=== PATIENT | female | born 1985 | race Two or more races ===

== ENCOUNTER 2025-08-16 16:40 | Emergency (ER) | payer OTHER, SELFPAY ==
[2025-08-16 17:23] VITALS: BP 126/83; PULSE 98; RESP 20; TEMP 36.7; O2SAT 96
--- NOTE | 2025-08-16 17:26 | XR_ITS ---
EXAMINATION: Right wrist 2 views TECHNIQUE: AP lateral right wrist 2 views Date and time: August 16, 2025, 1740 hours INDICATIONS: Patient fell today with injury to wrist, wrist pain. FINDINGS: No fracture or dislocation No foreign body IMPRESSION: No fracture or dislocation If wrist pain persists, recommend coned navicular view follow-up
--- NOTE | 2025-08-16 17:26 | XR_ITS ---
EXAMINATION: Right hand 2 views TECHNIQUE: AP lateral right hand 2 views Date and time: August 16, 2025, 1737 hours INDICATIONS: Patient fell today with injury to the hand, hand pain FINDINGS: No acute fracture. No dislocation No foreign body IMPRESSION: No acute fracture
--- NOTE | 2025-08-16 18:54 | EDNOTE_ITS ---
Upper Extremity Injury RME/HPI General Chief Complaint: Hand/Wrist Problems Stated Complaint: RIGHT HAND INJURY Time Seen by Provider: 08/16/25 16:47 Arrival date/time: 08/16/25 16:40 This is a case of 40-year-old female with no medical history came into the emergency room due to right hand and right wrist pain patient 1 hour prior to arrival in the emergency room patient was working accidentally fell and tripped landed on his right hand and right wrist since then patient is having pain and swelling denies any head injury denies any loss of consciousness denies any neck chest or abdominal injury Limitations: no limitations Related Data Home Medications ?Medication ?Instructions ?Recorded ?Confirmed atorvastatin 20 mg tablet 20 mg PO QDAY 11/09/2111/09 metformin 500 mg tablet 500 mg PO BID 11/09/2111/09 [id number] 1 mg 1 tab PO 1XD 12/21/23 12/21/23 tablet Previous Rx's ?Medication ?Instructions ?Recorded ibuprofen 600 mg tablet 600 mg PO Q8H PRN pain #30 t abs 11/10/21 ibuprofen 800 mg tablet 800 mg PO Q8H PRN pain #20 t abs 08/16/25 Allergies Allergy/AdvReac Type Severity Reaction Status Date / Time No Known Drug Allergies Allergy Unknown Verified 08/16/25 16:43 Review of Systems Review of Systems Systems Reviewed: All systems reviewed, normal except as documented Past Medical History Past Medical History NEUROLOGIC: Negative Neurological Disorders or Seizures CARDIAC: Positive Cardiac Disorders and Hypercholesterolemia; Negative Congestive Heart Failure, Edema, Cellulitis or Varicose Veins RESPIRATORY: Negative Chronic Obstructive Pulmonary Disease (COPD) GASTROINTESTINAL: Negative Gastrointestinal Disorders, Hepatitis or Colorectal Cancer GENITOURINARY: Negative Genitourinary Disorders, Renal Disease or Prostate Cancer REPRODUCTIVE: Positive Previous Pregnancies; Negative Breast Cancer, Pelvic Inflammatory Disease or Testicular Cancer MUSCULOSKELETAL: Negative Musculoskeletal Disorders or Bone Cancer ENDOCRINE: Positive Endocrine Disorders and Diabetes Mellitus Type 2; Negative Diabetes Mellitus Type 1, Hypoglycemia, Hyperthyroidism, Hypothyroidism, Parathyroid Disease, Pituitary Disease, Systemic Lupus Erythematosus, Syndrome of Inappropriate Antidiuretic Hormone (SIADH) or Graves' Disease HEMATOLOGIC: Negative Blood Disorders or Anemia PSYCHO/SOCIAL: Positive Depression; Negative Depression or Anxiety OTHER HISTORY: Positive Chicken Pox; Negative Hospitalization, Autoimmune Disease, Shingles, Falls, Blood Transfusions, Blood Transfusion Reaction, Anesthesia Reactions, Organ Transplant, Chemotherapy, Radiation Therapy, Hyperbaric Therapy, MRSA, VRSA, Vancomycin-Resistant Enterococci, Human Immunodeficiency Virus (HIV), Measles, Mumps, Rubella ([place] Measles), Pertussis, Clostridium Difficile, Cancer, Breast Cancer, Cervical Cancer, Colorectal Cancer, Lung Cancer, Ovarian Cancer, Prostate Cancer or Testicular Cancer Family History FAMILY HISTORY: Positive Family Cardiac Disorders, Family Surgery and Family Anesthesia Reaction; Negative Family Psychiatric Problems, Family Respiratory Disorders, Family Gastrointestinal Problems or Family Cancer Surgical History SURGICAL: Positive Section; Negative Pacemaker, Endocrine Surgery, Thyroidectomy or Organ Transplant Social History SMOKING STATUS: Never smoker SECOND HAND EXPOSURE: No ED Exam General Limitations: Present no limitations General appearance: Present alert, in no apparent distress and other (Physical examination patient is awake alert oriented not in distress nontoxic looking well-hydrated well-nourished) Head Head exam: Present atraumatic, normocephalic and normal inspection Eye Eye exam: Present normal appearance, PERRL and EOMI ENT ENT exam: Present normal exam, normal oropharynx and mucous membranes moist Neck Neck exam: Present normal inspection, full ROM and trachea midline; Absent tenderness, meningismus, lymphadenopathy or thyromegaly Chest Chest inspection: Present normal inspection and symmetric chest wall rise; Absent tenderness Respiratory Respiratory exam: Present normal lung sounds bilaterally; Absent respiratory distress, wheezes, stridor, accessory muscle use or prolonged expiratory phase Cardiovascular Cardiovascular exam: Present regular rate, normal rhythm and normal heart sounds; Absent bradycardia, tachycardia, irregular rhythm, systolic murmur or diastolic murmur Abdominal Exam Abdominal exam: Present soft and normal bowel sounds; Absent distention, tenderness, guarding, rebound, rigidity, diminished bowel sounds, hyperactive bowel sounds, hypoactive bowel sounds or organomegaly Extremities Exam Extremities exam: Present normal inspection and full ROM Expanded Upper Extremity Exam Forearm/Wrist exam: Present tenderness, swelling and other (ROM limited due to pain neurovascular intact); Absent abrasion, laceration, ecchymosis, deformity, crepitus, dislocation, erythema, tenderness over anatomical snuff box or pain with axial thumb loading Hand exam: Present tenderness, swelling and other (No crepitation no deformity no snuffbox tenderness ROM limited due to pain pulses were full and equal cap illary refill less than 2 seconds sensory intact); Absent abrasion, laceration, skin avulsion, ecchymosis, deformity, crepitus, dislocation, erythema, amputation, nail avulsion or subungual hematoma Back Exam Back exam: Present normal inspection and full ROM Neurological Exam Neurological exam: Present alert, oriented X3, CN II-XII intact, normal gait and reflexes normal; Absent motor sensory deficit Psychiatric Psychiatric exam: Present normal affect and normal mood Skin Skin exam: Present warm, dry, intact and normal color Course Quality Measures none Orders Category Date Time Status XR hand RT 2V Stat Exams 08/16/25 17:26 Completed XR wrist RT 2V Stat Exams 08/16/25 17:26 Completed HYDROcodone*/APAP 5/325 [[place] 5/325] Med 08/16/25 18:51 Once 1 tab PO X1 ONE Vital Signs Vital signs: Vital Signs Temperature 98.1 F 08/16/25 17:23 Pulse Rate 98 08/16/25 17:23 Respiratory Rate 20 08/16/25 17:23 Blood Pressure 126/83 08/16/25 17:23 Pulse Oximetry (%) 96 08/16/25 17:23 Oxygen Delivery Method Room Air 08/16/25 17:23 Oxygen saturation is 96% in room Extremity Injury MDM Narrative MDM Narrative:: This is a case of 40-year-old female with no medical history came into the emergency room due to right hand and right wrist pain patient 1 hour prior to arrival in the emergency room patient was working accidentally fell and tripped landed on his right hand and right wrist since then patient is having pain and swelling denies any head injury denies any loss of consciousness denies any neck chest or abdominal injury physical examination patient is awake alert oriented not in distress nontoxic looking well-hydrated well-nourished moderate tenderness on the dorsal aspect of the right hand and right wrist with mild swelling no crepitation no deformity no snuffbox tenderness ROM is limited due to pain pulses were full and equal capillary refill less than 2 seconds sensory is intact x-ray of the right hand right wrist showed no fracture no dislocation splint was applied patient tolerated well neurovascular intact RICE treatment will continue by the patient at home patient was prescribed with ibuprofen patient was given [place] which improved resolve the pain patient will follow-up with PCP in 2 days for reevaluation she was advised if symptoms persist is to see a orthopedic surgeon for possible MRI or repeat x-ray to rule out occult fracture or ligament injury for any worsening symptoms or any emergent concern return precaution in the ER is advised Patient was discharged with comfortable condition walking with stable gait. Patient verbalized no further complains explained diagnosis and answered patient question. Patient is comfortable with the proposed management plan including the need to follow up with his/her primary care physician and any specialist if applicable Discussed patient for any urgent condition or worsening sx, He/She needed to go to emergency room immediately or call 911. Patient acknowledge the responsibility to follow up as instructed and to monitor her/his symptoms. For any persistence of the symptoms for more than 3-5 days return precaution advised. Discussed the result of the test and was given printed discharge instruction Patient data External records reviewed:: [facility] previous records Clinical information provided by:: patient Social determinants that could affect healthcare access:: none Patient has the following chronic illnesses:: None How is presenting disease/condition affected by chronic disease/condition?: no chronic disease Evaluation data The following diagnostics were reviewed and interpreted by me:: radiology exam(s) Lab and/or radiology exams considered but not ordered:: Reviewed Interpretation Summary: Reviewed Medications / Prescriptions Medications or Prescriptions considered but not ordered:: Given Medication administrations:: Medication Administration History Hydrocodone Bitart/Acetaminophen (Hydrocodone/[place] 5/325 Tablet) 1 tab PO X1 ONE Stop: 08/16/25 18:52 Given Consultations Consultation(s) initiated? (list below): No Consultation #1 (Physician, Specialty, Details): None Diagnosis Upper Extremity Injury Differential Diagnosis: sprain and strain of wrist and fracture of hand Most likely diagnosis given after review of the tests above:: Right wrist and right hand sprain Admission Indicated Admission indicated?: not indicated Explain why admission is indicated or not indicated:: Not indicated Admission Request Was there a request for admission?: No Admission Attestation Admission request attestation: Not indicated Disposition Plan Disposition Plan: Discharge Discharge Attestation Discharge Attestation: The patient and all family members were given an opportunity to ask questions and understood the discharge instructions. Discharge instructions specifically effects, indications for sooner follow up or return to the emergency department, and the expected course of current diagnosis. Patient condition: Stable Discharge Plan Plan Patient Disposition: HOME (Self Care) Patient condition on transfer: Stable Prescriptions/Referrals Prescriptions/Med Rec: New ibuprofen 800 mg tablet 800 mg PO Q8H PRN (Reason: pain) Qty: 20 0RF No Action metformin 500 mg Tablet 500 mg PO BID atorvastatin 20 mg Tablet 20 mg PO QDAY ibuprofen 600 mg tablet 600 mg PO Q8H PRN (Reason: pain) Qty: 30 0RF 1 1 mg Tablet 1 tab PO 1XD Referrals: Josy Beckford FNP [Primary Care Provider] - In 1 week Problem List Clinical Impression: Sprain of hand, right, Right wrist sprain Patient/Caregiver Discharge Instructions Education Materials: ED YAMILET Wrap, ED Splint Care, Fiberglass, ED Hand Sprain, ED Wrist Sprain, ED RICE Additional Instructions: Follow-up with your primary care physician in 2 days for reevaluation and if symptoms persist need to be referred to Ortho for possible MRI or repeat x-ray to rule out occult fracture or ligament injury worsening symptoms or any emergent concerns such as numbness weakness tingling sensation return to the emergency room immediately or call 911 ice pack every 2 hours for 30 minutes for 24 hours then alternate with warm compress elevate to decrease swelling keep the splint in place until cleared by your primary care physician Print Language: Tamazight Stand Alone Forms: Olga Award Info., Work/School Release, Patient Portal Info Letter MAIA/ADELE Supervising Physician MAIA/ADELE Supervising Physician: Dr. Arizmendi
[2025-08-16] MEDS: HYDROcodone/APAP 5/325 TABLET 1 TAB PO (19:06)
== END 2025-08-16 19:17 | disposition home or self-care (01) ==
PROVIDERS: Emergency Provider Emergency Medicine; PCP Registered Nurse Community Health
DX: S63.501A Unspecified sprain of right wrist, initial encounter (principal); W01.0XXA Fall on same level from slipping, tripping and stumbling without subsequent striking against object, initial encounter
CPT/HCPCS: 29125; 73100; 73120; 99283; A9270